=== PATIENT | female | born 1930 | race Hispanic/Latino ===

== ENCOUNTER 2018-09-12 02:00 | Emergency (ER) | payer MEDICARE, OTHER ==
[2018-09-12 02:41] LABS: #Eosinphils 0.2 thou/uL (0.0-0.7); #Lymphocytes 1.8 thou/uL (1.20-3.40); #Monocytes 0.4 thou/uL (0.11-0.59); #Neutrophils 5.5 thou/uL (1.40-6.50); %Basophils 0.6 % (0.0-1.0); %Eosinophils 2.2 % (0.0-10.0); %Lymphocytes 22.7 % (21.0-51.0); %Monocytes 5.1 % (0.0-10.0); %Neutrophils 69.4 % (42.0-75.0); Hemoglobin 13.6 g/dL (12.0-16.0); Mean Corpuscular HGB CONC 33.4 g/dL (32.0-36.0); Mean Corpuscular Hemoglobin 30.3 pg (27.0-31.0); Mean Corpuscular Volume 90.7 fL (78.0-98.0); Mean Platelet Volume 8.1 fL (7.4-10.4); Platelet Count 203 thou/uL (130-400); RBC Distribution Width 12.9 % (11.5-14.5); White Blood Cell (WBC) Count 7.9 thou/uL (4.8-10.8)
[2018-09-12 03:02] LABS: ALT (SGPT) 12 U/L (8-55); AST (SGOT) 19 U/L (5-34); Albumin 4.3 g/dL (3.4-4.8); Alkaline Phosphatase 104 U/L (40-150); Anion Gap 15 mmol/L (10-20); BUN (Urea Nitrogen) 19 mg/dL (9.8-20.1); Bilirubin, Total 0.5 mg/dL (0.2-1.2); Calc. Creatinine Clearance 0 mL/min (70-130); Calcium 9.3 mg/dL (7.8-10.44); Carbon Dioxide 24 mmol/L (23-31); Chloride 97 mmol/L (98-107); Estimated GFR-MDRD 62; Glucose 231 mg/dL (83-110); Potassium 3.5 mmol/L (3.5-5.1); Protein, Total 8.3 g/dL (6.0-8.3); Sodium 132 mmol/L (136-145)
[2018-09-12] MEDS ORDERED: Ondansetron ODT 4 MG TAB ONE (06:11)
[2018-09-12] MEDS ORDERED: Meclizine HCl 25 MG TAB ONE (06:23)
--- NOTE | 2018-09-12 08:21 | CT ---
PRELIMINARY REPORT/[facility]/EMERGENTY AFTER-HOURS PROCEDURE CT Head Without Contrast EXAM DATE/TIME: 09/12/2018 5:46 AM CLINICAL HISTORY: 88 years old, female; Signs and symptoms; Visual disturbance and weakness, extremity; Bilateral; Lanie ent HX: F88 presents to ed for htn/vomiting. PT woke from sleep around midnight with dizziness and vo miting, red tinged vomit. PT denies similar SX of dizziness before. PT reports cold sweats. PT denies chest pain, reports mild shortness of breath. Hx- stroke on right side. TECHNIQUE: Axial computed tomography images of the head/brain without contrast. COMPARISON: No relevant prior studies available. FINDINGS: Brain: Volume loss and chronic small vessel ischemic change. No brain edema. No intracranial hemorrha ge. Ventricles: Normal. No ventriculomegaly. Bones/joints: Normal. No acute fracture. Sinuses: Normal as visualized. No acute sinusitis. Mastoid air cells: Normal as visualized. No mastoid effusion. Soft tissues: Normal. IMPRESSION: No acute brain findings. Thank you for allowing us to participate in the care of your patient. Dictated and Authenticated by: Pablito Montana MD 09/12/2018 6:59 AM Central Time ([place] & [place]) FINAL REPORT HEAD CT WITHOUT CONTRAST: Date: 09-12-18 Comparison: 11-01-15 History: Visual disturbances and weakness, dizziness and vomiting. FINDINGS: I agree with the preliminary [facility] report dictated by Dr. Pablito Montana. The imaged paranasal sinuse s/mastoid air cells are well aerated. There is atherosclerotic calcification of the distal right vert ebral artery and the cavernous carotid arteries. There is mild diffuse cerebral volume loss with associated prominence of the CSF containing spaces. P eriventricular and deep white matter hypodensity noted, evidence of small vessel disease. No intracra nial hemorrhage, midline shift, mass effect, or ventricular enlargement. IMPRESSION: Chronic findings as detailed above. No acute findings. Code QA. POS: MI
--- NOTE | 2018-09-12 08:26 | RAD ---
TWO VIEWS CHEST: Comparison: 12-12-15 History: Hypertension and vomiting. FINDINGS: Two views of the chest shows a normal sized cardiomediastinal silhouette with atherosclerotic calcifi cations in the aorta. There is no evidence of consolidation, mass, or pleural effusion. Scoliotic cur vature and degenerative changes are seen in the spine. IMPRESSION: No evidence of acute cardiopulmonary disease. POS: CET
== END 2018-09-12 07:17 | disposition home or self-care (01) ==
LOC: ERS 02:00
DX: I10 Essential (primary) hypertension (principal); R42 Dizziness and giddiness; E11.9 Type 2 diabetes mellitus without complications
CPT/HCPCS: 36415; 70450; 71046; 80053; 84484; 85025; 87804; 93005; Q0162

== ENCOUNTER 2019-01-17 12:41 | Emergency (ER) | payer MEDICARE, MEDICAID ==
[2019-01-17 13:33] LABS: #Eosinphils 0.1 thou/uL (0.0-0.7); #Lymphocytes 1.4 thou/uL (1.20-3.40); #Monocytes 0.5 thou/uL (0.11-0.59); #Neutrophils 5.5 thou/uL (1.40-6.50); %Basophils 0.3 % (0.0-1.0); %Eosinophils 1.5 % (0.0-10.0); %Lymphocytes 18.5 % (21.0-51.0); %Monocytes 6.4 % (0.0-10.0); %Neutrophils 73.3 % (42.0-75.0); Hemoglobin 12.9 g/dL (12.0-16.0); Mean Corpuscular HGB CONC 33.7 g/dL (32.0-36.0); Mean Corpuscular Hemoglobin 30.9 pg (27.0-31.0); Mean Corpuscular Volume 91.9 fL (78.0-98.0); Mean Platelet Volume 7.2 fL (7.4-10.4); Platelet Count 233 thou/uL (130-400); RBC Distribution Width 12.7 % (11.5-14.5); Red Blood Cell (RBC) Count 4.18 mill/uL (4.20-5.40); White Blood Cell (WBC) Count 7.5 thou/uL (4.8-10.8)
[2019-01-17 13:56] LABS: ALT (SGPT) 14 U/L (8-55); AST (SGOT) 20 U/L (5-34); Albumin 3.9 g/dL (3.4-4.8); Alkaline Phosphatase 93 U/L (40-150); Anion Gap 14 mmol/L (10-20); BUN (Urea Nitrogen) 13 mg/dL (9.8-20.1); Bilirubin, Total 0.6 mg/dL (0.2-1.2); Calc. Creatinine Clearance 0 mL/min (70-130); Calcium 9.1 mg/dL (7.8-10.44); Carbon Dioxide 25 mmol/L (23-31); Chloride 95 mmol/L (98-107); Estimated GFR-MDRD 72; Globulin 3.5 g/dL (2.4-3.5); Glucose 227 mg/dL (83-110); Lipase 28 U/L (8-78); Potassium 3.7 mmol/L (3.5-5.1); Protein, Total 7.4 g/dL (6.0-8.3); Sodium 130 mmol/L (136-145)
[2019-01-17] MEDS ORDERED: Ondansetron ODT 4 MG TAB ONE (15:42)
[2019-01-17 16:36] LABS: Bilirubin Negative (Negative); Blood, Urine Small (Negative); Clarity CLOUDY (Clear); Glucose, Urine (Dipstick) 250 mg/dL (Negative); Leukocyte Large (Negative); Nitrite Negative (Negative); Protein, Urine (Dipstick) 30 mg/dL (Neg-Trace); Specific Gravity, Urine 1.011 (1.002-1.036); Urobilinogen 0.2 mg/dL (0.2-1.0); pH, Urine 6.5 (5.0-9.0)
[2019-01-17 16:39] LABS: Bacteria/HPF 4+ HPF (None Seen); Hyaline Casts/LPF 0-3 HYALINE CAST LPF (0-3 Hyaline); Pathc Cast-AUWi Flag 0.73 (0-2.49); Squamous Epithelial None Seen HPF (0-3)
[2019-01-17 16:40] LABS: Yeast-AUWi Flag 139.8 (0-25.0)
[2019-01-17 16:56] LABS: Yeast-All Forms None Seen HPF (None Seen)
--- NOTE | 2019-01-20 14:36 | EKG ---
Test Reason : DIZZINESS Blood Pressure : / mmHG Vent. Rate : 073 BPM Atrial Rate : 073 BPM P-R Int : 144 ms QRS Dur : 090 ms QT Int : 412 ms P-R-T Axes : 016 001 054 degrees QTc Int : 453 ms Normal sinus rhythm Normal ECG Confirmed by EMILE SHEPHERD D.O. ([id number]), film editor supervisor FAY ORELLANA ([id number]) on 01/20/2019 2:36:17 PM Referred By: Confirmed By:EMILE SHEPHERD D.O.
== END 2019-01-17 18:00 | disposition home or self-care (01) ==
LOC: ERS 12:41
DX: R11.2 Nausea with vomiting, unspecified (principal); N39.0 Urinary tract infection, site not specified; I25.10 Atherosclerotic heart disease of native coronary artery without angina pectoris; E11.9 Type 2 diabetes mellitus without complications; I10 Essential (primary) hypertension; Z79.899 Other long term (current) drug therapy
CPT/HCPCS: 36415; 80053; 81003; 81015; 83690; 84484; 85025; 87077; 87086; 93005; Q0162

== ENCOUNTER 2020-09-19 05:56 | Emergency (ER) | payer MEDICARE, OTHER ==
[2020-09-19 06:25] LABS: #Lymphocytes 1.1 thou/uL (1.20-3.40); #Monocytes 0.6 thou/uL (0.11-0.59); #Neutrophils 13.7 thou/uL (1.40-6.50); %Basophils 0.2 % (0.0-1.0); %Lymphocytes 7.3 % (21.0-51.0); %Monocytes 4.1 % (0.0-10.0); %Neutrophils 88.4 % (42.0-75.0); Mean Corpuscular HGB CONC 33.2 g/dL (32.0-36.0); Mean Corpuscular Volume 90.3 fL (78.0-98.0); Mean Platelet Volume 8.1 fL (7.4-10.4); Platelet Count 199 thou/uL (130-400); RBC Distribution Width 12.6 % (11.5-14.5); Red Blood Cell (RBC) Count 4.67 mill/uL (4.20-5.40); White Blood Cell (WBC) Count 15.5 thou/uL (4.8-10.8)
[2020-09-19 06:49] LABS: ALT (SGPT) 22 U/L (8-55); AST (SGOT) 23 U/L (5-34); Albumin 3.9 g/dL (3.4-4.8); Alkaline Phosphatase 97 U/L (40-110); Anion Gap 17 mmol/L (10-20); BUN (Urea Nitrogen) 11 mg/dL (9.8-20.1); Bilirubin, Total 1.1 mg/dL (0.2-1.2); CK (CPK) 61 U/L (29-168); Calc. Creatinine Clearance 0 mL/min (70-130); Calcium 8.9 mg/dL (7.8-10.44); Carbon Dioxide 23 mmol/L (23-31); Chloride 94 mmol/L (98-107); Globulin 3.7 g/dL (2.4-3.5); Glucose 391 mg/dL (83-110); Potassium 3.5 mmol/L (3.5-5.1); Protein, Total 7.6 g/dL (6.0-8.3); Sodium 130 mmol/L (136-145)
[2020-09-19] MEDS ORDERED: Ondansetron PF 4 MG/2 ML Vial ONE (06:54)
[2020-09-19] MEDS ORDERED: Morphine 4 MG/ML VIAL ONE (06:54)
--- NOTE | 2020-09-19 07:48 | CT ---
EXAM: CT ABDOMEN AND PELVIS HISTORY: Right lower quadrant pain. COMPARISON: None. CORRELATION: CT angiogram of the chest 11/06/2015. Procedure: Multiple contiguous axial images were obtained and a CT of the abdomen and pelvis with IV contrast. C oronal reformats were performed. 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 Based on the previous examination, the true lumen supplies the celiac artery, superior mesenteric artery, bilateral renal arteries and the right common iliac artery. Left common i liac artery supplied by the false lumen. There is hyperdensity within the thrombus in the false lumen suggesting possible vascular flow within the eccentric thrombus. 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 There is extensive atherosclerosis involving the abdominal vasculature. No significant atherosclerotic disease involving the celiac federico ry, splenic artery. There is decreased enhancement involving the proximal superior mesenteric artery which may represent a high-grade occlusion. No CT evidence of bowel ischemia. Heart: Coronary artery calcifications are identified. Abdomen: Portal vein:Patent Gallbladder: Contracted. Liver: within normal limits. Pancreas: within normal limits. Spleen: within normal limits. Adrenals: within normal limits. Kidneys: Symmetric enhancement. No obstructive uropathy. There is scarring in the right upper pole co rtex. Subcentimeter hypodensity in the right lower pole cortex is too small to further characterize but is statistically favored to be a cyst. Peritoneum: No ascites or free air, no fluid collection. Bowel: Limited evaluation due to lack of oral contrast administration. There are multiple segments of slightly prominent fluid-filled small bowel loops. Findings may represent a developing bowel obstruction or ileus. There is mural thickening involving the cecum. Correlate for possible colitis. Normal caliber appendix is identified. Mesentery and Retroperitoneum: No enlarged mesenteric or retroperitoneal lymph nodes. Abdominal Wall: Small umbilical hernia containing mesenteric fat. Pelvis: Reproductive Organs: Reproductive organs are unremarkable. Pelvis: No mass, lymphadenopathy, free air or free fluid. Bladder: Moderately distended. Bones: Multilevel degenerative changes throughout the spine. IMPRESSION: 1. 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 Findings are similar to the previous examination. Consider cardiovascular surgical consultation. 2. Inflammatory changes involving the cecal apex and cecum. Correlate for developing colitis. No evid ence of appendicitis. 3. Slightly prominent fluid-filled small bowel loops. Correlate for partial obstruction versus develo ping ileus. 4. Moderately distended urinary bladder. Encourage spontaneous voiding. 5. Near complete occlusion of the false lumen secondary to significant atherosclerotic plaque. 6. 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 Results of study discussed with Dr. Romero on 09/19/2020 at 7:42 AM Code CR Transcribed Date/Time: 09/19/2020 7:54 AM
[2020-09-19 08:48] LABS: Bacteria/HPF None Seen HPF (None Seen); Bilirubin Negative (Negative); Blood, Urine 3+ (Negative); Clarity Clear (Clear); Glucose, Urine (Dipstick) Greater than 1000 mg/dL (Negative); Ketone, Urine Negative (Negative); Leukocyte Negative Leu/uL (Negative); Nitrite Negative (Negative); Protein, Urine (Dipstick) Negative (Neg-Trace); RBC/HPF 21-50 HPF (0-3); Specific Gravity, Urine 1.022 (1.002-1.036); Squamous Epithelial 0-3 HPF (0-3); Urobilinogen Normal mg/dL (Less than 2); WBC/HPF 21-50 HPF (0-3)
[2020-09-19] MEDS ORDERED: Iopamidol-370 76% 500 ML 1 ML ONE (10:28)
--- NOTE | 2020-10-11 18:36 | EKG ---
Test Reason : Blood Pressure : / mmHG Vent. Rate : 090 BPM Atrial Rate : 090 BPM P-R Int : 174 ms QRS Dur : 090 ms QT Int : 366 ms P-R-T Axes : 013 004 057 degrees QTc Int : 447 ms Normal sinus rhythm Cannot rule out Inferior infarct , age undetermined Cannot rule out Anterior infarct , age undetermined Abnormal ECG Confirmed by BRADFORD CARLTON ([id number]), editor newspaper FAY ORELLANA ([id number]) on 10/11/2020 6:36:09 PM Referred By: Confirmed By:BRADFORD CARLTON
== END 2020-09-19 10:22 | disposition home or self-care (01) ==
LOC: ERS 05:56
DX: R33.9 Retention of urine, unspecified (principal); E11.9 Type 2 diabetes mellitus without complications; I10 Essential (primary) hypertension; I25.10 Atherosclerotic heart disease of native coronary artery without angina pectoris; K37 Unspecified appendicitis
CPT/HCPCS: 36415; 51702; 74177; 80053; 81003; 81015; 82550; 83605; 83690; 84484; 85025; 87040; 87086; 93005; 96374; 96375; J2270; J2405; Q9967